=== PATIENT | female | born 1960 | race Caucasian/White ===

== ENCOUNTER 2018-10-04 05:47 | Inpatient (IN) | payer OTHER ==
[2018-10-04] MEDS ORDERED: CEFAZOLIN 1 GM INJ (07:00)
[2018-10-04] MEDS ORDERED: ROPIVACAINE 0.5 % 30 ML VIAL ×2 (07:02→07:25)
[2018-10-04] MEDS ORDERED: PROPOFOL 20 ML (07:22)
[2018-10-04] MEDS ORDERED: MIDAZOLAM 1 MG/ML 2 ML INJ (07:22)
[2018-10-04] MEDS ORDERED: METOCLOPRAMIDE 10 MG INJ (07:22)
[2018-10-04] MEDS ORDERED: ROCURONIUM 50 MG INJ (07:22)
[2018-10-04] MEDS ORDERED: ONDANSETRON 4 MG INJ (07:22)
[2018-10-04] MEDS ORDERED: FENTAnyl 50 MCG/ML VIAL ×2 (07:22→10:38)
[2018-10-04 07:43] LABS: INR 0.92; PROTIME 12.4 Sec (11.9-14.9)
[2018-10-04 07:44] LABS: PARTIAL THROMBOPLASTIN TIME 32.2 Sec (23.0-35.0)
[2018-10-04] MEDS ORDERED: ROPIVACAINE 0.2% 20 ML VIAL (08:00)
[2018-10-04] MEDS: oxyCODONE 5 MG TAB PO ×5 (08:00→21:56)
[2018-10-04] MEDS ORDERED: CEFAZOLIN 1 GM INJ IV (08:00)
[2018-10-04] MEDS ORDERED: DIPHENHYDRAMINE 25 MG CAP PO (08:00)
[2018-10-04] MEDS ORDERED: PHENYLephrine (100 MCG/ML) 5ML SYG (08:02)
[2018-10-04] MEDS: GABAPENTIN 300 MG CAP PO ×3 (09:00→20:02)
[2018-10-04] MEDS ORDERED: CEFAZOLIN 1 GM/50 ML (PMX) 50 ML IVPB (10:00)
[2018-10-04] MEDS: POVIDONE IODINE 10% 28.4 GM OINT (10:03)
[2018-10-04] MEDS ORDERED: HYDROmorphONE 2 MG/ML SYG (10:39)
[2018-10-04] MEDS ORDERED: POLYMYXIN/BACITRACIN 1L IRRIG (11:37)
[2018-10-04] MEDS: POLYMYXIN/BACITRACIN 1L IRRIG (12:24)
[2018-10-04] MEDS: POLYMYXIN/BACITRACIN 1L IRRIG IRR (12:25)
[2018-10-04] MEDS ORDERED: NEOMYC/POLYMYX/BACIT 30 GM OINT (13:10)
[2018-10-04] MEDS: CEFAZOLIN 1 GM/50 ML (PMX) 50 ML IVPB (17:34)
[2018-10-04] MEDS: ONDANSETRON 4 MG INJ IV (18:07)
[2018-10-04] MEDS: HYDROmorphONE 1 MG/ML SYG IV ×2 (19:29→22:22)
[2018-10-04] MEDS: LACTATED RINGER'S 1,000 ML IV ×2 (19:30→21:56)
[2018-10-04] MEDS ORDERED: VITAMIN A & D 5 GM OINT PACKET TOP (19:58)
[2018-10-05] MEDS: ONDANSETRON 4 MG INJ IV (00:33)
[2018-10-05] MEDS: ACETAMINOPHEN 500 MG TAB PO (00:33)
[2018-10-05] MEDS: HYDROmorphONE 1 MG/ML SYG IV ×3 (01:17→05:29)
[2018-10-05] MEDS: oxyCODONE 5 MG TAB PO ×6 (02:12→23:22)
[2018-10-05] MEDS: CEFAZOLIN 1 GM/50 ML (PMX) 50 ML IVPB ×3 (02:13→17:17)
[2018-10-05] MEDS: KETOROLAC 30 MG INJ IV (05:54)
[2018-10-05] MEDS: GABAPENTIN 300 MG CAP PO ×3 (09:23→20:39)
[2018-10-05] MEDS: oxyCODONE (CR) 10 MG TAB [oxyCONTIN] PO (09:25)
[2018-10-05] MEDS: HYDROmorphONE 2 MG/ML SYG IV ×3 (10:48→20:39)
[2018-10-05] MEDS: MULTIVITAMINS/MINERALS TAB PO (14:30)
[2018-10-05] MEDS: DOCUSATE SODIUM 100 MG CAP PO ×2 (14:31→20:39)
[2018-10-05] MEDS: ASCORBIC ACID 500 MG TAB PO (14:31)
[2018-10-05] MEDS: CHOLECALCIFEROL 2,000 UNIT CAP PO (14:32)
[2018-10-05] MEDS: MINERAL OIL 30ML CUP PO ×2 (14:32→20:39)
[2018-10-05] MEDS: RIVAROXABAN 10 MG TABLET PO (17:15)
[2018-10-06] MEDS: CEFAZOLIN 1 GM/50 ML (PMX) 50 ML IVPB ×2 (01:56→10:09)
[2018-10-06] MEDS: HYDROmorphONE 2 MG/ML SYG IV ×3 (02:00→08:53)
[2018-10-06 06:00] LABS: LACTIC ACID 0.7 mmol/L (0.5-2.0)
[2018-10-06] MEDS: oxyCODONE 5 MG TAB PO ×2 (06:14→12:36)
[2018-10-06] MEDS: ASCORBIC ACID 500 MG TAB PO (08:42)
[2018-10-06] MEDS: GABAPENTIN 300 MG CAP PO ×3 (08:42→21:14)
[2018-10-06] MEDS: MULTIVITAMINS/MINERALS TAB PO (08:42)
[2018-10-06] MEDS: CHOLECALCIFEROL 2,000 UNIT CAP PO (08:42)
[2018-10-06] MEDS: DOCUSATE SODIUM 100 MG CAP PO ×2 (08:42→21:17)
[2018-10-06] MEDS: MINERAL OIL 30ML CUP PO ×2 (08:52→21:14)
[2018-10-06 09:59] LABS: ADD MAN DIFF? NO
[2018-10-06 10:01] LABS: WHITE BLOOD COUNT 5.3 10^3/ul (4.8-10.8)
[2018-10-06 10:01] LABS: BASOPHILS % 0.4 % (0.0-2.0); EOSINOPHILS # 0.1 10^3/ul (0.0-0.5); EOSINOPHILS % 1.3 % (0.0-7.0); HEMATOCRIT 27.2 % (37.0-47.0); HEMOGLOBIN 8.6 g/dl (12.0-16.0); LYMPHOCYTES # 0.8 10^3/ul (0.8-2.9); LYMPHOCYTES % 15.2 % (15.0-51.0); MEAN CORPUSCULAR HEMOGLOBIN 31.4 pg (29.0-33.0); MEAN CORPUSCULAR HGB CONC 31.6 g/dl (32.0-37.0); MEAN CORPUSCULAR VOLUME 99.3 fl (82.0-101.0); MEAN PLATELET VOLUME 10.1 fl (7.4-10.4); MONOCYTE # 0.8 10^3/ul (0.3-0.9); MONOCYTES % 14.3 % (0.0-11.0); NEUTROPHIL # 3.7 10^3/ul (1.6-7.5); NEUTROPHILS % 68.4 % (39.0-77.0); PLATELET COUNT 238 10^3/UL (140-415); RED BLOOD COUNT 2.74 10^6/ul (4.20-5.40); RED CELL DISTRIBUTION WIDTH 12.4 % (11.5-14.5)
[2018-10-06 10:22] LABS: C-REACTIVE PROTEIN 18.3 mg/dl (0.0-0.9)
[2018-10-06 11:13] LABS: ERYTHROCYTE SEDIMENTATION RATE 82 mm/Hr (0-30)
[2018-10-06] MEDS: ACETAMINOPHEN 500 MG TAB PO ×2 (16:00→21:15)
[2018-10-06] MEDS: RIVAROXABAN 10 MG TABLET PO (18:07)
[2018-10-07] MEDS: ONDANSETRON 4 MG INJ IV ×3 (01:06→15:40)
[2018-10-07] MEDS: ACETAMINOPHEN 500 MG TAB PO ×3 (01:13→20:17)
[2018-10-07] MEDS: ASCORBIC ACID 500 MG TAB PO (08:29)
[2018-10-07] MEDS: DOCUSATE SODIUM 100 MG CAP PO ×2 (08:29→20:16)
[2018-10-07] MEDS: GABAPENTIN 300 MG CAP PO ×2 (08:29→20:17)
[2018-10-07] MEDS: MULTIVITAMINS/MINERALS TAB PO (08:29)
[2018-10-07] MEDS: CHOLECALCIFEROL 2,000 UNIT CAP PO (08:29)
[2018-10-07] MEDS: MINERAL OIL 30ML CUP PO ×2 (08:34→20:18)
[2018-10-07] MEDS: oxyCODONE 5 MG TAB PO (15:40)
[2018-10-07] MEDS: RIVAROXABAN 10 MG TABLET PO (17:58)
[2018-10-08] MEDS: ACETAMINOPHEN 500 MG TAB PO (03:35)
[2018-10-08] MEDS: CHOLECALCIFEROL 2,000 UNIT CAP PO (08:59)
[2018-10-08] MEDS: GABAPENTIN 300 MG CAP PO (08:59)
[2018-10-08] MEDS: DOCUSATE SODIUM 100 MG CAP PO (08:59)
[2018-10-08] MEDS: MULTIVITAMINS/MINERALS TAB PO (08:59)
[2018-10-08] MEDS: MINERAL OIL 30ML CUP PO (09:00)
[2018-10-08] MEDS: ASCORBIC ACID 500 MG TAB PO (09:00)
[2018-10-08] MEDS: oxyCODONE 5 MG TAB PO (11:12)
== END 2018-10-08 15:30 | disposition home health service (06) | DRG 494 ==
LOC: SDS 05:47 → REC 07:44 → MS1 15:53
PROC: 0QSK04Z Reposition Left Fibula with Internal Fixation Device, Open Approach (ICD-10-PCS; principal; 2018-10-04 07:30)
PROC: 0QUK0KZ Supplement Left Fibula with Nonautologous Tissue Substitute, Open Approach (ICD-10-PCS; 2018-10-04 07:30)
DX: S82.872A Displaced pilon fracture of left tibia, initial encounter for closed fracture (principal); W19.XXXA Unspecified fall, initial encounter; M85.872 Other specified disorders of bone density and structure, left ankle and foot
CPT/HCPCS: 73610; 82306; 83605; 84703; 85025; 85610; 85651; 85730; 86140; 87040; 97110; 97116; 97161; 97530